=== PATIENT | male | born 1975 | race African-American/Black ===

== ENCOUNTER → 2019-07-05 | Outpatient (CLI) | payer OTHER ==
[~2019-07-05] MED LIST: BUPIVACAINE MPF 0.25% 10 ML VIAL. ONE; LISI1TAB23 PO; methylPREDNISolone ACETATE 40 MG/ML VIAL. ONE
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
== END ==
LOC: PNCL 08:44
PROVIDERS: ATTEND Anesthesiology
DX: M79.18 Myalgia, other site (principal); M51.84 Other intervertebral disc disorders, thoracic region; M54.89 Other dorsalgia; I10 Essential (primary) hypertension; M19.90 Unspecified osteoarthritis, unspecified site
CPT/HCPCS: 20553; J1030; J3490